=== PATIENT | female | born 1965 | race African-American/Black ===

== ENCOUNTER 2021-04-14 05:59 | Emergency (ER) | payer OTHER | END 2021-04-14 06:31 | disposition home or self-care (01) | LOC: BURERS 05:59 | DX: S39.011A Strain of muscle, fascia and tendon of abdomen, initial encounter (principal); E11.9 Type 2 diabetes mellitus without complications; I10 Essential (primary) hypertension; Z79.84 Long term (current) use of oral hypoglycemic drugs | CPT/HCPCS: 99283 ==

== ENCOUNTER 2023-03-15 05:26 | Emergency (ER) | payer OTHER ==
[2023-03-15] MEDS ORDERED: predniSONE 20 MG TAB ONE (06:12)
[2023-03-15] MEDS ORDERED: Ipratropium/Albuterol 3 ML NEB ONE (06:12)
== END 2023-03-15 06:40 | disposition home or self-care (01) ==
LOC: BURERS 05:26
DX: B34.9 Viral infection, unspecified (principal); R09.1 Pleurisy; E11.9 Type 2 diabetes mellitus without complications; I10 Essential (primary) hypertension; Z79.899 Other long term (current) drug therapy
CPT/HCPCS: 71045; 87081; 87430; J7512; J7620